=== PATIENT | female | born 1990 | race Caucasian/White ===

== ENCOUNTER → 2017-12-14 11:17 | Outpatient (CLI) | payer SELFPAY ==
[2017-12-14 13:10] LABS: Chlamydia Trachomatis by PCR Negative (Negative); Neisserai gonorrhoeae by PCR Negative (Negative); Probe Check PASS; Sample Adequacy Control PASS; Specimen Processing Control PASS
[2017-12-16 14:36] LABS: HPV Reflexed? NOT INDICATED
== END ==
PROVIDERS: Visit Provider Obstetrics & Gynecology
DX: Z12.4 Encounter for screening for malignant neoplasm of cervix (principal); Z11.3 Encounter for screening for infections with a predominantly sexual mode of transmission; Z32.01 Encounter for pregnancy test, result positive
CPT/HCPCS: 87491; 87591; 88175; G0145

== ENCOUNTER 2017-12-25 10:41 | Day surgery (SDC) | payer SELFPAY ==
[2017-12-25] VITALS (7 sets, daily range): BP systolic 103–125; BP diastolic 68–89; PULSE 68–90; RESP 16; TEMP 36.3–36.9; O2SAT 100; BMI 28.4
--- NOTE | 2017-12-25 12:00 | POC_PTH ---
PATIENT: EVANGELIST COOL LOC: [facility] [place] U#:[id number] AGE/SX: 27/F ROOM: RE12/25/[address]: Dr. Beth Read MD : [id number] BED: DIS: 12/25/2017 SPEC #: [id number] RECD: 12/25/17 14:38 STATUS: KENNEY NING #: [id number] JOANNA: 12/25/17 12:[address]: Beth Read DEPT: SURGICAL PATHOLOGY RECD BY: Evans Guzman ENTERED: 12/25/17 14:38 SP TYPE: PROD CONC OTHR DR: Dr. Denny Mayberry MD Tissues: Product of conception, NOS Procedures: Surgery Specimen Level IV HEADER OPERATION: Dilation and curettage, suction PRE-OP DIAGNOSIS: Missed TISSUE SUBMITTED: Products of conception MICROSCOPIC DIAGNOSIS Endometrium, curettage: Chorionic villi, decidualized stroma and trophoblastic cells consistent with products of conception. AM:rohit 12/26/17 MICROSCOPIC DESCRIPTION Slides are reviewed. GROSS DESCRIPTION Received in fixative is one container labeled with the patient's name and designated products of conception. The specimen consists of multiple irregular and hemorrhagic fragments of red-agee soft tissue that in aggregate measure 10 x 6 x 1 cm. parts are not grossly recognized. Instructor Of Nursing portions are submitted in one cassette. / AM:rohit 12/25/17 TC:5 CPT: 02252
--- NOTE | 2017-12-25 12:05 | PCM.DC.D&C ---
Discharge Diet: No Restrictions Discharge Activity: May not drive while taking narcotic pain medications., May Shower, May Take a Tub Bath Return to work on:: 12/26/17 May resume sexual activity in: 1-2 weeks Call your doctor if you observe: Fever of 101 or Higher, Inability to have a bowel movement, Using more than one pad per hour, Uncontrolled pain Allergies/Adverse Reactions: Allergies No Known Allergies Allergy (Verified 12/22/17 14:29) Medications to take at Discharge Acetaminophen/Codeine #3 [Tylenol#3] 1 - 2 tab PO Q6H PRN PRN #10 tab 12/25/17 Multivitamin [Daily Multiple Vitamin] 1 each PO DAILY 12/25/17 The following prescriptions were given: Acetaminophen/Codeine #3 [Tylenol#3] 1 - 2 tab PO Q6H PRN PRN #10 tab PRN Reason: Pain Primary Care Physician: Denny Mayberry MD [Primary Care Provider] - Please Follow Up With: Beth Read MD - [phone] When: 2 wks for postop check up Proposed Discharge Date: 12/25/17
--- NOTE | 2017-12-25 12:09 | DCINST_ITS ---
Discharge Diet: No Restrictions Discharge Activity: May not drive while taking narcotic pain medications., May Shower, May Take a Tub Bath Return to work on:: 12/26/17 May resume sexual activity in: 1-2 weeks Call your doctor if you observe: Fever of 101 or Higher, Inability to have a bowel movement, Using more than one pad per hour, Uncontrolled pain Allergies/Adverse Reactions: Allergies No Known Allergies Allergy (Verified 12/22/17 14:29) Medications to take at Discharge Acetaminophen/Codeine #3 [Tylenol#3] 1 - 2 tab PO Q6H PRN PRN #10 tab 12/25/17 Multivitamin [Daily Multiple Vitamin] 1 each PO DAILY 12/25/17 The following prescriptions were given: Acetaminophen/Codeine #3 [Tylenol#3] 1 - 2 tab PO Q6H PRN PRN #10 tab PRN Reason: Pain Primary Care Physician: Denny Mayberry MD [Primary Care Provider] - Please Follow Up With: Beth Read MD - [phone] When: 2 wks for postop check up Proposed Discharge Date: 12/25/17
--- NOTE | 2017-12-26 01:13 | OP.PCM_ITS ---
Problem List (1) Missed Status: Acute (2) 8 weeks gestation of Status: Acute Operative Report Date of Procedure: 12/25/17 - suction D and C Date of Procedure: 12/25/17 Pre-Operative Diagnosis: Missed , 8+ wk EGA Post-Operative Diagnosis: Same Surgery/Procedure Performed:: Suction D and C Anesthesia: MAC IV sedation, Caryn Saul, PEST CONTROL WORKER HELPER and 10 cc of 1% lidocaine as paracervical block Estimated Blood Loss (mL): Minimal Complications: none. Drains: None. Fluids Replaced: LR Findings: Uterus slightly anteverted No cervical lesions noted. Tissue consistent with products of conception noted. PATH: Products of conception, uterine curettings. Narrative Account: After the risks, benefits, alteratives of the procedure were reviewed with the patient informed consent was obtained. The patient was taken to the OR with IV running and placed in dorsal supine position on the operating table. She was given MAC IV sedation, and then repositioned to the dorsal lithotomy position and was prepped and draped in the usual sterile fashion. A Graves speculum was placed, the cervix identified and the anterior lip grasped with a single toothed tenaculum. The cervix was then easily dilated to allow admission of an 9 mm curved suction curette tip. The suction curette was then placed to the uterine fundus, suction applied, and POC were obtained. After most of the products of conception were removed a sharp curettage was performed and good Crei was noted in all quadrants of the uterus. One final pass was conducted with the suction curette and the remaining products of conception and uterine curettings were removed. The tenaculum was removed from the anterior lip of the cervix. A sponge stick was then used to remove any remaining tissue and blood from the upper vagina and cervix . All instruments were then removed from the vagina and cervix. Excellent hemostasis was noted. The patient was awakened from her IV sedation, and then transferred to her recovery room bed in stable condition after tolerating the procedure well. Sponge , instrument, and needle counts were correct x two. Medications given intraoperatively included: Toradol 30 mg IV x one. For a complete listing of medications given intraoperatively, please see the anesthesia record.
== END 2017-12-25 14:54 | disposition home or self-care (01) ==
LOC: SDC 10:45 → AC 10:49
PROVIDERS: Family Provider Family Medicine; PCP Family Medicine; Visit Provider Obstetrics & Gynecology
PROC: (CPT 59820; principal; 2017-12-25 11:45)
DX: O02.1 Missed abortion (principal); Z3A.08 8 weeks gestation of pregnancy
CPT/HCPCS: 59820; 88305; J7120; J2405

== ENCOUNTER → 2020-01-03 | Outpatient (CLI) | payer SELFPAY ==
[2017-12-25 11:01] VITALS: BMI 28.4
[2020-01-03 17:36] LABS: Chlamydia Trachomatis by PCR Negative (Negative); Neisserai gonorrhoeae by PCR Negative (Negative); Probe Check PASS; Sample Adequacy Control PASS; Specimen Processing Control PASS
== END | disposition home or self-care (01) ==
LOC: LABSPEC 13:37
PROVIDERS: PCP Family Medicine; Visit Provider Obstetrics & Gynecology
DX: Z11.3 Encounter for screening for infections with a predominantly sexual mode of transmission (principal)
CPT/HCPCS: 87491; 87591

== ENCOUNTER → 2020-01-07 11:56 | Outpatient (CLI) | payer SELFPAY ==
[2017-12-25 11:01] VITALS: BMI 28.4
[2020-01-07 13:52] LABS: Absolute Neutrophil Count 7.8 X10^3/uL (2.0-7.7); Basophil# 0.04 X10^3/uL; Basophil% 0.4 % (0-1); Eosinophil# 0.05 X10^3/uL; Eosinophils% 0.5 % (0-5); Hematocrit 40.6 % (37-47); Hemoglobin 13.8 g/dL (12.0-15.0); Lymphocyte % 17.4 % (19-41); Mean Corpuscular Hgb 29.5 pg (27.0-32.0); Mean Corpuscular Volume 86.8 fL (81-99); Mean Platelet Vol. 9.8 fl (6.2-12.0); Monocyte% 5.8 % (0-10); NRBC Flagged by Analyzer 0 % (0-5); Neutrophil # 7.84 X10^3/uL (2.7-7.7); Neutrophil % 75.6 % (47-70); Platelet Count 275 K/mm3 (150-450); RBC Distribution Width CV 12.1 % (11.6-14.6); RBC Distribution Width SD 38.6 fl (35.1-43.9); Red Blood Count 4.68 M/mm3 (4.2-5.4); White Blood Count 10.4 K/mm3 (4.4-11.0)
[2020-01-07 13:54] LABS: Color, Urine Yellow (Yellow); Glucose, Dipstick Normal (Normal); Ketone-Dipstick 50 mg/dl (Negative); Leukocyte Esterase-Dipstick 100 /ul (Negative); Nitrite-Dipstick Negative (Negative); Occult Blood-Urine Negative /ul (Negative); Protein-Dipstick Negative (Negative); Urine Bilirubin Dipstick Negative (Negative); Urine Clarity Sl. Cloudy (Clear); Urine Urobilinogen Normal (Normal); Urine pH 6.5 (5.0 - 8.0)
[2020-01-07 14:03] LABS: Amphetamine Urine VISTA NEGATIVE (<1000 ng/mL); Barbiturate Urine VISTA NEGATIVE (< 200 ng/mL); Benzodiazepine Urine VISTA NEGATIVE (< 200 ng/mL); Cocaine Urine VISTA NEGATIVE (< 300 ng/mL); Ecstacy Urine VISTA NEGATIVE (< 500 ng/mL); Methadone Urine VISTA NEGATIVE (< 300 ng/mL); PCP Urine VISTA NEGATIVE (< 25 ng/mL); THC Urine VISTA NEGATIVE (< 50 ng/mL); Vista UDS pH Range 6
[2020-01-07 14:13] LABS: Thyroid Stim Hormone (TSH) 2.19 uIU/mL (0.358-3.74)
[2020-01-07 14:57] LABS: HIV - WCH Non-Reactive (Nonreactive); Hepatitis B Surface Antigen Non-Reactive (Nonreactive); Hepatitis C Antibody Non-Reactive (Nonreactive); Rubella IgG 143.9 IU/mL
[2020-01-09 03:26] LABS: Prenatal RPR NONREACTIVE (NONREACTIVE)
== END ==
PROVIDERS: PCP Family Medicine; Visit Provider Obstetrics & Gynecology
DX: Z34.81 Encounter for supervision of other normal pregnancy, first trimester (principal)
CPT/HCPCS: 36415; 80307; 81002; 84443; 85025; 86703; 86762; 86803; 87340

== ENCOUNTER → 2020-05-21 10:10 | Outpatient (CLI) | payer SELFPAY ==
[2017-12-25 11:01] VITALS: BMI 28.4
[2020-05-21 12:26] LABS: Hematocrit 36.3 % (37-47); Hemoglobin 11.6 g/dL (12.0-15.0); Mean Corpuscular Hgb 30.1 pg (27.0-32.0); Mean Platelet Vol. 9.4 fl (6.2-12.0); Platelet Count 251 K/mm3 (150-450); RBC Distribution Width CV 13.4 % (11.6-14.6); RBC Distribution Width SD 45.6 fl (35.1-43.9); Red Blood Count 3.86 M/mm3 (4.2-5.4); White Blood Count 13.3 K/mm3 (4.4-11.0)
[2020-05-21 12:38] LABS: Glucose Challenge Gest 1H 50g 113 mg/dL (70-140)
== END ==
PROVIDERS: PCP Family Medicine; Visit Provider Obstetrics & Gynecology
DX: Z34.83 Encounter for supervision of other normal pregnancy, third trimester (principal)
CPT/HCPCS: 36415; 82950; 85027

== ENCOUNTER → 2020-07-17 | Outpatient (CLI) | payer SELFPAY ==
[2017-12-25 11:01] VITALS: BMI 28.4
== END | disposition home or self-care (01) ==
LOC: LABSPEC 15:32
PROVIDERS: PCP Family Medicine; Visit Provider Obstetrics & Gynecology
DX: Z36.85 Encounter for antenatal screening for Streptococcus B (principal)
CPT/HCPCS: 87081

== ENCOUNTER 2020-07-30 12:10 | Inpatient (IN) | payer SELFPAY ==
[2017-12-25 11:01] VITALS: BMI 28.4
[2020-07-30] VITALS (16 sets, daily range): BP systolic 106–135; BP diastolic 60–82; PULSE 74–102; TEMP 36.7–37.5; O2SAT 96–100; BMI 33.2
[2020-07-30 10:53] LABS: Hemoglobin 10.4 g/dL (12.0-15.0); Mean Corp Hgb Conc 32.5 g/dL (32-36); Mean Corpuscular Hgb 28.7 pg (27.0-32.0); Mean Corpuscular Volume 88.2 fL (81-99); Mean Platelet Vol. 9.7 fl (6.2-12.0); Platelet Count 216 K/mm3 (150-450); RBC Distribution Width CV 13.2 % (11.6-14.6); RBC Distribution Width SD 42.2 fl (35.1-43.9); Red Blood Count 3.63 M/mm3 (4.2-5.4); White Blood Count 13.3 K/mm3 (4.4-11.0)
[2020-07-30 10:56] LABS: Protein, Urine (Random) 25.9 mg/dL (<11.9)
[2020-07-30 11:00] LABS: International Normalized Ratio 0.9; Partial Thromboplast Time 24.3 Seconds (24.1-36.2); Prothrombin Time (Protime)PT. 11.6 SECONDS (11.7-14.9)
[2020-07-30 11:02] LABS: AST(SGOT) 17 U/L (15-37); Alanine Aminotransfer ALT/SGPT 15 U/L (13-56); Creatinine, Serum 0.62 mg/dL (0.55-1.02); EST Glomerular Filtration Rate 121 mL/min (>60); Est Glom Filt Rate - Afr Amer 146 mL/min (>60)
[2020-07-30] MEDS: 0.9% Saline Lock 10 ML Syringe IV (13:15)
[2020-07-30] MEDS: miSOPROStol 25 MCG TABLET VAGINAL ×2 (14:58→18:57)
--- NOTE | 2020-07-30 18:13 | HP.PCM_ITS ---
- Problem List (1) 37 weeks gestation of Status: Acute (2) Gestational hypertension Status: Acute History Date of Admission: 07/30/20 Final JOSEF: 08/14/20 Final JOSEF Source: US <20 weeks Gestational age: 37 Weeks and 6 Days History of this : This is a 29 year-old, G [3], P [1], at 37.6 weeks gestational age. Allergies No Known Allergies Allergy (Verified 12/22/17 14:29) Home Medications: Home Medications Acetaminophen/Codeine #3 [Tylenol#3] 1 - 2 tab PO Q6H PRN PRN #10 tab 12/25/17 Multivitamin [Daily Multiple Vitamin] 1 each PO DAILY 12/25/17 Aspirin [Aspirin, Baby] 81 mg PO DAILY@0800 07/30/20 Smoking Status: Never smoker Alcohol: None Number of Fetus(es): 1 NST - FHR Rate Baby A Baseline: 120 Variability:: Moderate Accelerations:: 15 x 15 Decelerations:: None NST Reactive:: Yes FHR Category:: Category I Uterine Activity:: 8-10m History Past Pregnancies: Previous pregnancies: DEL DATE GEST LAB WT LB WT OZ TYPE ANES LABOR TX Dec 18 9 0 0 0 Sab General No Mar 04 37 1 6 13 Vag Local No Labs: Mom's Current Diagnoses Gestational [-induced] hypertension without significant proteinuria, third trimester 07/30/20 Mom's Labs & Results 07/30/20 07/30/20 07/30/20 10:30 10:30 10:30 WBC 13.3 H RBC 3.63 L Hgb 10.4 L Hct 32.0 L MCV 88.2 MCH 28.7 MCHC 32.5 RDW Std Deviation 42.2 RDW Coeff of Malina 13.2 Plt Count 216 MPV 9.7 PT 11.6 L INR 0.9 APTT 24.3 Creatinine 0.62 Est GFR (MDRD) Af Amer 146 Est GFR (MDRD) Non-Af 121 Uric Acid 4.0 AST 17 ALT 15 U Random Total Protein Urine Creatinine Protein/Creatinin Ratio Blood Type Antibody Screen 07/30/20 07/30/20 07/30/20 10:30 13:25 17:30 WBC RBC Hgb Hct MCV MCH MCHC RDW Std Deviation RDW Coeff of Malina Plt Count MPV PT INR APTT Creatinine Est GFR (MDRD) Af Amer Est GFR (MDRD) Non-Af Uric Acid AST ALT U Random Total Protein 25.9 H Pending Urine Creatinine Pending Protein/Creatinin Ratio Pending Blood Type A POSITIVE Antibody Screen NEGATIVE Course Did the patient receive Yes care? Labs Blood Type: A RH: POSITIVE RPR/VDRL/Syphilis Nonreactive Rubella status Immune HbSAg Negative Date Done: 01/07/20 Chlamydia Negative Gonorrhea Negative HIV/AIDS Non-Reactive Group B Strep: Negative Current Obstetrical History Gestational Diabetes No Incompetent Cervix No Infertility No IUGR No Macrosomia No Hypertension/Pre-eclampsia No Placenta Previa/Abruption No PTL/PROM No Uterine anomaly No Oligohydramnios No Polyhydramnios No Multiple gestation No Past Medical History Asthma No Diabetes No Hypertension No Heart disease No Mitral valve prolapse No Neurologic/Seizure disorder/ No Migraines Kidney disease No Liver disease No Varicosities No Clotting disorders/Hx of DVT No Thyroid Dysfunction No Other medical diseases No Psychiatric disorders No Major trauma No Abnormal PAP smear No Sleep apnea No Mammogram in the last 2 years No Social History Marital Status: Alleged father thong Hx Smoking No Smoking Status Never smoker How long have you used none substances (years)? Expected Infant Delivery Method: Spontaneous Vaginal Number of Visits: 11 Review of Systems Constitutional: Denies: Chills, Fever, Weight Change HEENT: Denies: Head Aches, Sinus Congestion, Sinus Drainage Cardiovascular: Denies: Chest Pain, Palpitations Respiratory: Denies: Cough, Shortness of breath at rest, Sputum production Gastrointestinal: Denies: Abdominal Pain, Nausea, Vomiting Genitourinary: Denies: Dysuria Musculoskeletal: Denies: Joint Pain, Joint Tenderness Skin: Denies: Rash, Wounds Neurological: Denies: Numbness, Tingling, Focal weakness Psychiatric: Denies: Anxiety, Depression, Homicidal Ideations, Suicidal Ideations Hematologic/ Lymphatic: Denies: Easy Bruising, Easy Bleeding Physical Exam Vitals: Vital Signs Temp Pulse BP Pulse Ox 99.5 F H 98 117/70 99 07/30/20 17:24 07/30/20 17:24 07/30/20 17:24 07/30/20 15:05 General: Alert, Oriented x3, No apparent distress HEENT: Atraumatic, Normocephalic. Negative for: Thyromegaly, Lymphadenopathy Cardiovascular: Regular rate, Regular Rhythm Lungs: Clear to auscultation Abdomen: Bowel Sounds Present, Gravid Neurological: Deep Tendon Reflexes 2+/4 and Symmetrical, Neuro grossly intact DERRICK MAN: Normal external genitalia. Negative for: Vulvar lesions Estimated gestational size: Appropriate for gestational size Presentation: Cephalic Cervix Dilation (cm): 1 Station: -3 Effacement (%): 20 Assessment/Plan All Active Problems 37 weeks gestation of (Acute) Gestational hypertension (Acute) 8 weeks gestation of (Acute) Missed (Acute) A/P: This is a 29 year-old, G [3], P [1], at 37.6 weeks gestational age. SVE 12/09/-3 BP in office 140s/90s with blurred vision Denies blurred vision at this time Pre-eclampsia labs negative IOL with Cytotec for gestational hypertension, Hx of severe pre-eclampsia with features with last NST Category I Plans unmedicated Expect
[2020-07-30 18:41] LABS: Protein, Urine (Random) 35.8 mg/dL (<11.9); Protein:Creat Ratio 236 mg/g CRE (0-200)
--- NOTE | 2020-07-30 19:05 | PN.OBGYN_ITS ---
Patient Problems: Active and Suspected Problems 37 weeks gestation of (Acute) Gestational hypertension (Acute) Subjective: Still not feeling any pain, slight tightening with contractions. Denies headache or blurred vision. Objective: SVE 4/50/-3 soft midposition. FHR baseline 125, +accels, -decels, moderate variability, UC Q5-7m - Physical Exam Vitals/I&O's: Vital Signs Temp Pulse BP Pulse Ox 99.5 F H 90 134/76 H 100 07/30/20 17:24 07/30/20 18:56 07/30/20 18:56 07/30/20 18:56 Weight: 93.3 kg Body Mass Index (BMI) 33.2 Intake and Output for Last 24 Hours 07/28/20 07/29/20 07/30/20 23:59 23:59 23:59 Output Total 200 / 200 Balance -200 / -200 General: Alert, Oriented x3, Cooperative HEENT: Atraumatic, PERRLA, EOMI, Normocephalic Neck: Supple, No JVD, Negative Carotid Bruits Lungs: Clear to auscultation, Normal air movement Cardiovascular: Regular rate, No murmurs Abdomen: Bowel Sounds Present, Soft, Non Tender Extremities: No edema, Capillary Refill Less than 3 Seconds Skin: No rashes, No breakdown Musculoskeletal: No Tenderness to Palpation of Joints or Extremities Neurological: Cranial nerves II-XII grossly intact Psych/Mental Status: Normal Affect, Appropriate Laboratory Results 07/30/20 10:30: Creatinine 0.62, Est GFR (MDRD) Af Amer 146, Est GFR (MDRD) Non- Af 121, Uric Acid 4.0, AST 17, ALT 15 07/30/20 10:30: PT 11.6 L, INR 0.9, APTT 24.3 07/30/20 10:30: WBC 13.3 H, RBC 3.63 L, Hgb 10.4 L, Hct 32.0 L, MCV 88.2, MCH 28.7, MCHC 32.5, RDW Std Deviation 42.2, RDW Coeff of Malina 13.2, Plt Count 216, MPV 9.7 07/30/20 10:30: U Random Total Protein 25.9 H 07/30/20 13:25: Blood Type A POSITIVE, Antibody Screen NEGATIVE 07/30/20 17:30: U Random Total Protein 35.8 H, Urine Creatinine 152.00, Protein/Creatinin Ratio 236 H Current Medications Acetaminophen (Tylenol) 325 - 650 mg PO Q4H PRN PRN PRN Reason: Pain Score 1-3/10 Al Hydroxide/Mg Hydroxide (Mylanta Ii) 15 - 30 ml PO Q4H PRN PRN PRN Reason: INDIGESTION Citric Acid/Sodium Citrate (Bicitra) 30 ml PO X1 PRN PRN Reason: Section Fentanyl Citrate (Sublimaze (100mcg Ampule)) 25 - 50 mcg IV Q2H PRN PRN PRN Reason: Pain Score 4-10/10 Lactated Ringer's () 500 mls @ 999 mls/hr IV .Q31M PRN PRN Reason: Epidural Lactated Ringer's () 500 mls @ 999 mls/hr IV .Q31M PRN PRN Reason: Corrective Measures Lactated Ringer's () 1,000 mls @ 50 mls/hr IV .Q20H [facility] Last Admin: 07/30/20 14:56 Dose: Not Given Documented by: Misoprostol (Cytotec) 25 mcg VAGINAL Q4H [facility] Last Admin: 07/30/20 18:57 Dose: 25 mcg Documented by: Ondansetron HCl (Zofran) 4 mg IV Q4H PRN PRN PRN Reason: NAUSEA Prochlorperazine Edisylate (Compazine Iv) 10 mg IV Q6H PRN PRN PRN Reason: NAUSEA Sodium Chloride () 10 - 40 ml IV X1 PRN PRN Reason: SALINE FLUSH Last Admin: 07/30/20 13:15 Dose: 10 ml Documented by: Medical Necessity - Tobacco Use Smoking Status: Never smoker Assessment/Plan All Active Problems 37 weeks gestation of (Acute) Gestational hypertension (Acute) 8 weeks gestation of (Acute) Missed (Acute) A/P: at 37w6d here for IOL with gestational hypertension BP remains stable SVE 4/50/-3 soft midposition NST Category I UC Q-7m Continue IOL Expect
[2020-07-30] MEDS: Acetaminophen 325 MG Tablet PO (23:05)
[2020-07-31] VITALS (19 sets, daily range): BP systolic 99–155; BP diastolic 58–113; PULSE 59–94; RESP 14–18; TEMP 36.3–37; O2SAT 99–100
[2020-07-31] MEDS: Lactated Ringers 1,000 ML 200 ML IV (00:07)
[2020-07-31] MEDS: Oxytocin 30 units/NS 500 ml 30 UNITS/500 ML IV.SOLN 334 UNITS IV (02:10)
--- NOTE | 2020-07-31 02:40 | PCM.OPRPT ---
Problem List (1) 37 weeks gestation of Status: Acute (2) Gestational hypertension Status: Acute Vaginal Delivery Maternal Presentation: Medically Indicated Induction Method of Induction: Cytotec Medical Reason for Induction: Gestational Hypertension Amniotic Membrane Rupture Type: Spontaneous Rupture of Membrane time: 233 Amniotic Fluid Description: Clear Final JOSEF: 08/14/20 Final JOSEF Source: US <20 weeks Gestational age: 38 Weeks and 0 Days Date of Procedure: 07/31/20 Pre-Operative Diagnosis: IOL for GHTN Post-Operative Diagnosis: S/P Surgery/ Procedure Performed: Spontaneous Vaginal Delivery Type of Anesthesia: Local with 1% lidocaine Description of Procedure: Patient was /0 with amniotic forebag and very uncomfortable when typewriter mechanic arrived in room. With amniotomy, immediate descent of head. She pushed once to deliver head in OA to ARIEL. With snug shoulders, she pushed two times to deliver body. The male was placed on the maternal abdomen and further attended to by nursery personnel. The cord was doubly clamped and cut by FOB under CNM supervision at approximately 5 minutes of life. First degree left labial laceration repaired with a 3.0 double rapide under 1% local Lidocaine. With gentle traction the placenta delivered. IV Pitocin started per protocol. On inspection placenta appears intact with a three vessel cord. Apgars 8/9. EBL 300. Sponge and needle counts correct x 2. Attending MD: Dr. Helena Moise Presentation: Vertex, ARIEL Placental Delivery Description: Spontaneous Placenta Disposition: [facility] Cord Vessel Description: 3 Vessels Cord Entanglement: None Estimated Blood Loss: 300 A gender: Male (1 minute): 8 (5 minute): 9 Episiotomy Description: None Laceration: 1st degree - left labial Medications given after delivery: IV Pitocin
--- NOTE | 2020-07-31 02:57 | DCINST_ITS ---
Discharge Diet: No Restrictions Discharge Activity: Return to Normal Activity, May not drive while taking narcotic pain medications., May Shower May resume sexual activity in: 4-6 weeks Additional Activity Instructions:: Nothing in the vagina for 4-6 weeks. You may return to work/school in 6 weeks. Call your doctor if your incision/area has: Continuous Slow Oozing, Sudden Increased Bleeding, Increased Pain/ Swelling, Increased Redness, Foul Smelling Discharge Additional Instructions: If you experience any of the following, contact your healthcare provider. * Bleeding that soaks a pad every hour for 2 hours * Fever 100.4 or higher * Unrelieved incision or abdominal pain * Swelling, redness, discharge or bleeding from your incision or episiotomy site * Your incision begins to separate * Problems urinating (including inability to urinate or burning while urinating). * Visual changes * Severe headache * Flu-like symptoms * Pain or redness in one of both of your breasts * Pain, warmth, tenderness or swelling in your legs, especially the calf area * Frequent nausea and vomiting * Symptoms of depression or anxiety If you experience any of the following, call 911 or go to the nearest Emergency Room. * Chest pain * Problems breathing * Seizure activity * Partial or complete paralysis of a body part, slurred speech, weakness or drooping of the face, or a sudden inability to walk or hold your balance Allergies/Adverse Reactions: Allergies No Known Allergies Allergy (Verified 12/22/17 14:29) Medications to take at Discharge Acetaminophen/Codeine #3 [Tylenol#3] 1 - 2 tab PO Q6H PRN PRN #10 tab 12/25/17 Multivitamin [Daily Multiple Vitamin] 1 each PO DAILY 12/25/17 Aspirin [Aspirin, Baby] 81 mg PO DAILY@0800 07/30/20 Please Follow Up With: Alvina Choi CNM When: Call to make an appointment with your CNM in 6 weeks. Primary Care Physician: Denny Mayberry MD [Primary Care Provider] - Test Results: Test results from this visit will be discussed in further detail at your follow- up appointment, if applicable.
[2020-07-31] MEDS: Ibuprofen 600 MG Tablet PO ×3 (03:01→15:56)
--- NOTE | 2020-07-31 07:22 | PCM.PN.OB ---
Patient Problems: Active and Suspected Problems 37 weeks gestation of (Acute) Gestational hypertension (Acute) Subjective: Objective: No complaints this morning. Pain well controlled. Minimal lochia - Physical Exam Vitals/I&O's: Vital Signs Temp Pulse BP Pulse Ox 98.2 F 68 140/76 H 100 07/31/20 03:45 07/31/20 04:13 07/31/20 04:13 07/31/20 01:31 Weight: 205 lb 11.06 oz Body Mass Index (BMI) 33.2 Intake and Output for Last 24 Hours 07/29/20 07/30/20 07/31/20 23:59 23:59 23:59 Intake Total 1641.42 / 1641.42 Output Total 200 / 200 900 / 900 Balance -200 / -200 741.42 / 741.42 General: Alert, Oriented x3, Cooperative, No apparent distress HEENT: Atraumatic, Normocephalic Oral: Moist Mucosa Neck: Supple Abdomen: Soft, Non Tender, Gravid - fundus firm at umbilicus Psych/Mental Status: Normal Affect, Appropriate, Alert and oriented to time, place, person, mood and affect Laboratory Results 07/30/20 10:30: Creatinine 0.62, Est GFR (MDRD) Af Amer 146, Est GFR (MDRD) Non-Af 121, Uric Acid 4.0, AST 17, ALT 15 07/30/20 10:30: PT 11.6 L, INR 0.9, APTT 24.3 07/30/20 10:30: WBC 13.3 H, RBC 3.63 L, Hgb 10.4 L, Hct 32.0 L, MCV 88.2, MCH 28.7, MCHC 32.5, RDW Std Deviation 42.2, RDW Coeff of Malina 13.2, Plt Count 216, MPV 9.7 07/30/20 10:30: U Random Total Protein 25.9 H 07/30/20 13:25: Blood Type A POSITIVE, Antibody Screen NEGATIVE 07/30/20 17:30: U Random Total Protein 35.8 H, Urine Creatinine 152.00, Protein/Creatinin Ratio 236 H Current Medications Acetaminophen (Tylenol) 1,000 mg PO Q8H PRN PRN PRN Reason: Pain Score 1-3/10 Aspirin (Aspirin, Baby) 81 mg PO DAILY@0800 [facility] Bisacodyl (Dulcolax) 10 mg RECTAL UD PRN PRN Reason: If no BM Hydrocortisone (Hytone) 1 applic TOPICAL TID PRN PRN; Protocol PRN Reason: Discomfort Ibuprofen (Motrin) 600 mg PO Q6H PRN PRN PRN Reason: Pain Score 1-3/10 Last Admin: 07/31/20 03:01 Dose: 600 mg Documented by: Methylergonovine Maleate (Methergine) 0.2 mg IM X1 PRN PRN Reason: Excess bleeding/uterine atony Ondansetron HCl (Zofran) 4 mg IV Q4H PRN PRN PRN Reason: Nausea Senna/Docusate Sodium (Senokot-S, Elizabeth-Colace) 1 - 2 tablet PO DAILY PRN PRN PRN Reason: Constipation Simethicone (Mylicon) 80 mg PO PCHS PRN PRN Reason: Indigestion/Stomach pain Sodium Chloride () 5 - 15 ml IV UD PRN PRN Reason: SALINE FLUSH Throat Lozenges (Dermoplast (Sp)) 1 applic TOPICAL 4X/DAY PRN OMAR; Protocol Last Admin: 07/31/20 03:08 Dose: 1 applic Documented by: Medical Necessity - Tobacco Use Smoking Status: Never smoker Assessment/Plan All Active Problems 37 weeks gestation of (Acute) Gestational hypertension (Acute) 8 weeks gestation of (Acute) Missed (Acute) PPD#0, pain well controlled. Breast feeding. Home tomorrow
[2020-07-31] MEDS: Acetaminophen 500 MG Tablet 1000 MG PO ×2 (13:30→21:36)
[2020-07-31] MEDS: Aspirin 81 MG TAB.CHEW PO (13:31)
[2020-08-01 03:04] VITALS: BP 104/59; PULSE 80; RESP 14; TEMP 36.9
--- NOTE | 2020-08-01 03:06 | PCM.PN.OB ---
Patient Problems: Active and Suspected Problems 37 weeks gestation of (Acute) Gestational hypertension (Acute) Subjective: Overall feeling okay, but still very tired. Would like to go home. Objective: VSS. Fundus is firm, midline, u/2. Lochia rubra light - Physical Exam Vitals/I&O's: Vital Signs Temp Pulse Resp BP Pulse Ox 98.4 F 80 14 104/59 L 100 08/01/20 03:04 08/01/20 03:04 08/01/20 03:04 08/01/20 03:04 07/31/20 01:31 Oxygen Delivery Method Room Air Weight: 93.3 kg Body Mass Index (BMI) 33.2 Intake and Output for Last 24 Hours 07/30/20 07/31/20 08/01/20 23:59 23:59 23:59 Intake Total 1641.42 / 1641.42 Output Total 200 / 200 1100 / 1100 Balance -200 / -200 541.42 / 541.42 General: Alert, Oriented x3, Cooperative HEENT: Atraumatic, PERRLA, EOMI, Normocephalic Neck: Supple, No JVD, Negative Carotid Bruits Lungs: Clear to auscultation, Normal air movement Cardiovascular: Regular rate, No murmurs Abdomen: Bowel Sounds Present, Soft, Non Tender Extremities: No edema, Capillary Refill Less than 3 Seconds Skin: No rashes, No breakdown Musculoskeletal: No Tenderness to Palpation of Joints or Extremities Neurological: Cranial nerves II-XII grossly intact Psych/Mental Status: Normal Affect, Appropriate Current Medications Acetaminophen (Tylenol) 1,000 mg PO Q8H PRN PRN PRN Reason: Pain Score 1-3/10 Last Admin: 07/31/20 21:36 Dose: 1,000 mg Documented by: Aspirin (Aspirin, Baby) 81 mg PO DAILY@0800 [facility] Last Admin: 07/31/20 13:31 Dose: 81 mg Documented by: Bisacodyl (Dulcolax) 10 mg RECTAL UD PRN PRN Reason: If no BM Hydrocortisone (Hytone) 1 applic TOPICAL TID PRN PRN; Protocol PRN Reason: Discomfort Ibuprofen (Motrin) 600 mg PO Q6H PRN PRN PRN Reason: Pain Score 1-3/10 Last Admin: 07/31/20 15:56 Dose: 600 mg Documented by: Methylergonovine Maleate (Methergine) 0.2 mg IM X1 PRN PRN Reason: Excess bleeding/uterine atony Ondansetron HCl (Zofran) 4 mg IV Q4H PRN PRN PRN Reason: Nausea Senna/Docusate Sodium (Senokot-S, Elizabeth-Colace) 1 - 2 tablet PO DAILY PRN PRN PRN Reason: Constipation Simethicone (Mylicon) 80 mg PO PCHS PRN PRN Reason: Indigestion/Stomach pain Sodium Chloride () 5 - 15 ml IV UD PRN PRN Reason: SALINE FLUSH Throat Lozenges (Dermoplast (Sp)) 1 applic TOPICAL 4X/DAY PRN OMAR; Protocol Last Admin: 07/31/20 03:08 Dose: 1 applic Documented by: Medical Necessity - Tobacco Use Smoking Status: Never smoker Assessment/Plan All Active Problems 37 weeks gestation of (Acute) Gestational hypertension (Acute) 8 weeks gestation of (Acute) Missed (Acute) A/P: S/P day #1 VSS Normal involution and lochia mother Dyad stable To follow up in 6 weeks in CNM office Understands signs of PPD and when to call Discharge home today
[2020-08-01] MEDS: Ibuprofen 600 MG Tablet PO ×2 (05:26→12:43)
[2020-08-01 08:41] VITALS: BP 110/64; PULSE 72; RESP 18; TEMP 36.8; O2SAT 98
[2020-08-01] MEDS: Acetaminophen 500 MG Tablet 1000 MG PO (09:00)
[2020-08-01] MEDS: Aspirin 81 MG TAB.CHEW PO (09:00)
[2020-08-01 13:56] VITALS: BP 106/67; PULSE 97; RESP 16; TEMP 36.5; O2SAT 97
[2020-08-01 14:40] VITALS: RESP 18
== END 2020-08-01 14:45 | disposition home or self-care (01) | DRG 807 ==
LOC: WP 12:18
PROVIDERS: Admitting Provider Obstetrics & Gynecology; PCP Family Medicine; Visit Provider Obstetrics & Gynecology
DX: O13.4 Gestational [pregnancy-induced] hypertension without significant proteinuria, complicating childbirth (principal); Z37.0 Single live birth; O42.02 Full-term premature rupture of membranes, onset of labor within 24 hours of rupture; O70.0 First degree perineal laceration during delivery; Z3A.38 38 weeks gestation of pregnancy; Z79.82 Long term (current) use of aspirin; Z87.59 Personal history of other complications of pregnancy, childbirth and the puerperium
CPT/HCPCS: 36415; 59025; 59050; 82565; 82570; 84156; 84450; 84460; 84550; 85027; 85610; 85730; 86850; 86900; 86901; 99218; J7120; A4216; G0378